=== PATIENT | male | born 1950 | race Two or more races ===

== ENCOUNTER 2017-11-10 19:39 | Emergency (ER) | payer MEDICAID, MEDICARE ==
[~2017-11-10] VITALS: Ht 170.2 cm; Wt 78.0 kg
[~2017-11-10 19:39] MED LIST: ALLOPURINOL100 M1 ORAL; AMLODIPINE BESY10 MG ORAL; COLCRYS0.6 M1 ORAL; DOCUSATE SODIU100 MG ORAL; FERROUS SULFAT325 MG ORAL; FOLIC ACID1 MG ORAL; LABETALOL HCL200 MG ORAL; MULTI-VITAMIN1 EACH PO; RENAGEL400 MG ORAL; VITAMIN D250000 UNI1 ORAL; Warfarin RX monitoring MISC
[2017-11-10] MEDS ORDERED: NEPHROVITE1 TAB ORAL (20:04)
[2017-11-10] MEDS ORDERED: ROXICODONE15 MG ORAL (20:04)
[2017-11-10] MEDS ORDERED: ATORVASTATIN CA80 MG ORAL (20:04)
[2017-11-10] MEDS ORDERED: FOLIC ACID1 MG ORAL (20:04)
[2017-11-10] MEDS ORDERED: NOVOLOG100 UNIT/3 SUBQ (20:04)
[2017-11-10] MEDS ORDERED: FENOFIBRATE145 M1 ORAL (20:04)
[2017-11-10] MEDS ORDERED: PANTOPRAZOLE SO40 MG ORAL (20:04)
[2017-11-10] MEDS ORDERED: RESTASIS1 EACH BOTH EYES (20:04)
[2017-11-10] MEDS ORDERED: CALCIUM ACETAT667 MG PO (20:04)
[2017-11-10] MEDS ORDERED: PLAVIX75 MG ORAL (20:04)
[2017-11-10] MEDS ORDERED: ASPIRIN81 MG ORAL (20:04)
[2017-11-10] MEDS ORDERED: MIDODRINE HCL5 MG ORAL (20:04)
[2017-11-10] MEDS ORDERED: SODIUM POL15 GM/60 M PO (20:04)
[2017-11-10] MEDS ORDERED: TOUJEO MAX300 UNIT/1 SQ (20:04)
[2017-11-10] MEDS ORDERED: SENSIPAR30 MG ORAL (20:04)
[2017-11-10] MEDS ORDERED: Piperacillin/Tazobactam 3.375 GM in NS 110 ML IVPB ONE (20:30)
[2017-11-10] MEDS ORDERED: Morphine Sulfate 2mg/ml Inj IVP ONE (20:30)
[2017-11-10 20:59] LABS: BASOPHILS % (AUTO) 0.4 % (0.0-2.0); HEMATOCRIT 28.7 % (42.0-52.0); HEMOGLOBIN 9.4 G/DL (14.2-18.0); LYMPHOCYTES % (AUTO) 17.4 % (20.0-45.0); MEAN CORPUSCULAR VOLUME 101 FL (80-99); MONOCYTES % (AUTO) 7.2 % (1.0-10.0); NEUTROPHILS % (AUTO) 72.9 % (45.0-75.0); PLATELET COUNT 208 K/UL (150-450); RED BLOOD COUNT 2.84 M/UL (4.70-6.10); RED CELL DISTRIBUTION WIDTH 16.6 % (11.6-14.8); WHITE BLOOD COUNT 9.1 K/UL (4.8-10.8)
[2017-11-10 21:01] LABS: ANION GAP 8 mmol/L (5-15); BLOOD UREA NITROGEN 39 mg/dL (7-18); CALCIUM 8.4 MG/DL (8.5-10.1); CARBON DIOXIDE 31 MMOL/L (21-32); CHLORIDE 100 MMOL/L (98-107); CREATININE 9.5 MG/DL (0.55-1.30); POTASSIUM 3.7 MMOL/L (3.5-5.1); SODIUM 139 MMOL/L (136-145)
[2017-11-10 21:05] LABS: ALANINE AMINOTRANSFERASE 21 U/L (12-78); ALBUMIN 3.3 G/DL (3.4-5.0); ALBUMIN/GLOBULIN RATIO 0.8 (1.0-2.7); ALKALINE PHOSPHATASE 62 U/L (46-116); ASPARTATE AMINO TRANSFERASE 16 U/L (15-37); BILIRUBIN,TOTAL 0.8 MG/DL (0.2-1.0)
[2017-11-10] MEDS ORDERED: CEPHALEXIN500 MG ORAL (22:30)
[2017-11-10] MEDS ORDERED: CIPRO500 MG PO (22:30)
[2017-11-10] MEDS ORDERED: OXYCODONE HCL5 M2 ORAL (22:31)
[2017-11-10 22:50] VITALS: BP 149/72
--- NOTE | 2017-11-11 00:02 | Emergency Room Report ---
History of Present Illness General Chief Complaint: Lower Extremity Injury Source: Patient Present Illness HPI Patient is a 67-year-old male who presented after increased the left great toe pain. Patient had the reportedly had increased pain after having increased toenail which became more uncomfortable. Patient reports having a throbbing sensation. He had prior history of peripheral vascular disease as well as cardiac bypass and end-stage renal disease. Patient was being dialyzed Saturday and Saturday. He reports being compliant with his medication regimen. Patient was noted to not be febrile. He had not been vomiting. He denied any worsening of symptoms over the past day. Allergies: Coded Allergies: No Known Allergies (Unverified , 08/12/15) Patient History Reviewed Nursing Documentation: PMH: Agreed; PSxH: Agreed Nursing Documentation-PMH Hx Cardiac Problems: Yes - CABG Hx Hypertension: Yes Hx Diabetes: Yes Hx Cancer: No Hx Gastrointestinal Problems: No Hx Dialysis: Yes - MWF Hx Neurological Problems: Yes - Left knee replacement Hx Syncope: Yes Review of Systems All Other Systems: negative except mentioned in HPI Physical Exam Vital Signs Date Time Temp Pulse Resp B/P (MAP) Pulse Ox O2 Delivery O2 Flow Rate FiO2 11/10/17 19:44 99.3 96 18 149/72 98 Room Air 99.3 Sp02 EP Interpretation: reviewed, normal General Appearance: normal inspection, well appearing, no apparent distress, alert, GCS 15 Head: atraumatic ENT: normal ENT inspection, hearing grossly normal, normal voice Neck: normal inspection, full range of motion, supple, no bony tend Respiratory: normal inspection, lungs clear, normal breath sounds, no respiratory distress, no retraction, no wheezing Cardiovascular #1: regular rate, rhythm, no edema Gastrointestinal: normal inspection, normal bowel sounds, non tender, soft, no guarding, no hernia Genitourinary: no CVA tenderness Musculoskeletal: normal inspection, back normal, normal range of motion Neurologic: normal inspection, alert, responsive, speech normal Psychiatric: normal inspection, judgement/insight normal, mood/affect normal Skin: no rash, other - erythema to left great toe Medical Decision Making Diagnostic Impression: Primary Impression: Cellulitis of left foot ER Course The patient presented for left great toe swelling. The differential diagnosis included wasn't limited to osteomyelitis, ingrown toenail, gout, necrotizing infection and among others. Because of complexity of patient's case laboratory testing and imaging studies were ordered. The laboratory testing showed normal white blood count. The patient's renal function tests appear to be elevated consistent with his chronic renal failure. The patient was offered admission and this was being prepared. The patient stated he change his mind and did not want to be admitted the hospital. The patient was given IV Zosyn in the emergency department. Patient will be given a trial of ciprofloxacin and Keflex.. 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 The patient is advised to return if he began having fever or increased pain to his toe or other concerns. Labs Test 11/10/17 20:31 White Blood Count 9.1 K/UL (4.8-10.8) Red Blood Count 2.84 M/UL (4.70-6.10) Hemoglobin 9.4 G/DL (14.2-18.0) Hematocrit 28.7 % (42.0-52.0) Mean Corpuscular Volume 101 FL (80-99) Mean Corpuscular Hemoglobin 33.0 PG (27.0-31.0) Mean Corpuscular Hemoglobin Concent 32.6 G/DL (32.0-36.0) Red Cell Distribution Width 16.6 % (11.6-14.8) Platelet Count 208 K/UL (150-450) Mean Platelet Volume 6.8 FL (6.5-10.1) Neutrophils (%) (Auto) 72.9 % (45.0-75.0) Lymphocytes (%) (Auto) 17.4 % (20.0-45.0) Monocytes (%) (Auto) 7.2 % (1.0-10.0) Eosinophils (%) (Auto) 2.0 % (0.0-3.0) Basophils (%) (Auto) 0.4 % (0.0-2.0) Erythrocyte Sedimentation Rate 88 MM/HR (0-20) Sodium Level 139 MMOL/L (136-145) Potassium Level 3.7 MMOL/L (3.5-5.1) Chloride Level 100 MMOL/L (98-107) Carbon Dioxide Level 31 MMOL/L (21-32) Anion Gap 8 mmol/L (5-15) Blood Urea Nitrogen 39 mg/dL (7-18) Creatinine 9.5 MG/DL (0.55-1.30) Estimat Glomerular Filtration Rate 5.6 mL/min (>60) Glucose Level 184 MG/DL (74-106) Calcium Level 8.4 MG/DL (8.5-10.1) Total Bilirubin 0.8 MG/DL (0.2-1.0) Aspartate Amino Transf (AST/SGOT) 16 U/L (15-37) Alanine Aminotransferase (ALT/SGPT) 21 U/L (12-78) Alkaline Phosphatase 62 U/L (46-116) Troponin I 0.000 ng/mL (0.000-0.056) C-Reactive Protein, Quantitative 5.8 mg/dL (0.00-0.90) Total Protein 7.7 G/DL (6.4-8.2) Albumin 3.3 G/DL (3.4-5.0) Globulin 4.4 g/dL Albumin/Globulin Ratio 0.8 (1.0-2.7) Last Vital Signs Date Time Temp Pulse Resp B/P (MAP) Pulse Ox O2 Delivery O2 Flow Rate FiO2 11/10/17 21:11 99.3 11/10/17 19:44 96 18 149/72 98 Room Air Status: improved Disposition: HOME, SELF-CARE Condition: Stable Scripts Oxycodone Hcl* (OXYCODONE HCL*) 5 Mg Capsule 5 MG ORAL Q6H PRN for For Pain, #10 CAP 0 Refills Prov: Terrell Guzman MD 11/10/17 Cephalexin* (KEFLEX*) 500 Mg Capsule 500 MG ORAL EVERY 12 HOURS, #14 CAP 0 Refills Prov: Terrell Guzman MD 11/10/17 Ciprofloxacin* (CIPRO*) 500 Mg Tablet 500 MG PO BID, #14 TAB Prov: Terrell Guzman MD 11/10/17 Referrals: NON PHYSICIAN (PCP) Patient Instructions: Peripheral Vascular Disease, [id number] Terrell Guzman MD Nov 11, 2017 00:02
--- NOTE | 2017-11-11 11:39 | Diagnostic Imaging Report ---
Indication: Foot pain Comparison: None Findings: 3 views of the left foot were obtained. No obvious erosion or periostitis or soft tissue air identified. Extensive vascular calcifications are present probably related to secondary hyperparathyroidism and renal disease. Correlate clinically. IMPRESSION: No plain film evidence for acute osteomyelitis.
== END 2017-11-10 21:50 | disposition home or self-care (01) ==
LOC: EMR 20:14 → CANBEDREQ 22:25
DX: L03.116 Cellulitis of left lower limb (principal); E11.22 Type 2 diabetes mellitus with diabetic chronic kidney disease; I12.0 Hypertensive chronic kidney disease with stage 5 chronic kidney disease or end stage renal disease; N18.6 End stage renal disease; Z99.2 Dependence on renal dialysis; Z95.1 Presence of aortocoronary bypass graft; Z96.652 Presence of left artificial knee joint
CPT/HCPCS: 36415; 73630; 80053; 84484; 85025; 85651; 86140; 86850; 86900; 86901; 87040; 93005; 99284; J2270; J2543